=== PATIENT | male | born 1975 | race African-American/Black ===

== ENCOUNTER 2019-06-17 20:57 | Emergency (ER) | payer OTHER ==
[~2019-06-17] VITALS: Ht 177.8 cm; Wt 106.6 kg
[2019-06-17 21:43] VITALS: BP 145/95
--- NOTE | 2019-06-17 21:43 | ER.PDOC ---
General Chief Complaint: Requesting Medical Care Stated Complaint: MALE Time seen by MD: 21:43 Source: patient, family Exam Limitations: no limitations History of Present Illness Initial Comments 43 Y/O MALE STATES OCC AFTER HE HAS SEX THE RIGHT SIDE OF HIS PENIS SWELLS BY HIS GLANDS. NO POSS OF STD. NO PAIN NOW, NO PAINFUL URINATION, NO PENIS LESIONS OR DISCHARGE. STATES IT HAS HAPPENED BEFORE. NO PAIN NOW. NO TRAUMA. Timing/Duration: intermittent Severity/Quality: other Sexual History: Non-contributory Prior symptoms/Treatment: Similar symptoms previous Allergies: Coded Allergies: No Known Allergies (Unverified , 10/04/16) Home Meds No Active Prescriptions or Reported Meds Past Medical History Surgical History: no surgical history Social History Alcohol Use: none Drug Use: none Reviewed Nursing Reviewed: Vital Signs, Abn. Noted, Nursing Assessment Review of Systems Constitutional: no symptoms reported EENTM: no symptoms reported Respiratory: no symptoms reported Cardiovascular: no symptoms reported Gastrointestinal: no symptoms reported Genitourinary: pain, other Musculoskeletal: no symptoms reported Skin: no symptoms reported Psychiatric/Neurological: no symptoms reported Endocrine: no symptoms reported Hematologic/Lymphatic: no symptoms reported Physical Exam General Appearance: No Apparent Distress, WD/WN Abdomen: Normal Bowel Sounds, Non Tender, Soft, No Organomegaly, No Pulsatile Mass Back: nml inspection 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 Results/Orders Results/Orders Vital Signs Date Time Temp Pulse Resp B/P (MAP) Pulse Ox O2 Delivery O2 Flow Rate FiO2 06/17/19 21:43 98.5 78 16 06/17/19 21:43 98.5 78 16 99 06/17/19 21:43 98.5 78 16 145/95 (112) 99 Room Air Departure Time of Disposition: 21:49 Disposition: 01 HOME, SELF-CARE Impression: Primary Impression: Penis abrasion Condition: Stable Referrals: [facility] REPRESENTATIVE PERSONAL SERVICE (PCP) PRIMARY CARE PROVIDER MARCELL INFANTE MD Additional Instructions: TO ED NEEDED, FOLLOW UP WITH DR INFANTE FOR FURTHER EVAL. RX MOTRIN 800MG PRN Scripts No Active Prescriptions or Reported Meds Duration or Time Spent with Pa: 10 MIN ANITRA PRETTY DO Jun 17, 2019 21:43
== END 2019-06-17 22:10 | disposition home or self-care (01) ==
LOC: ER 20:57
DX: S30.812A Abrasion of penis, initial encounter (principal); X58.XXXA Exposure to other specified factors, initial encounter; Y93.89 Activity, other specified; Y92.89 Other specified places as the place of occurrence of the external cause; Y99.8 Other external cause status
CPT/HCPCS: 99281; 99282

== ENCOUNTER 2019-12-07 21:19 | Emergency (ER) | payer OTHER ==
[~2019-12-07] VITALS: Ht 175.3 cm; Wt 104.3 kg
[2019-12-07] MEDS ORDERED: NS 1000ML 1,000 ML IV STA (22:00)
--- NOTE | 2019-12-07 22:00 | ER.PDOC ---
General Chief Complaint: Requesting Medical Care Stated Complaint: DIARRHEA Time seen by MD: 21:52 Source: patient Exam Limitations: no limitations History of Present Illness Initial Comments Patient c/o persistent diarrhea, onset 11/29. He was seen by Taty and delmi'angel luis OLEARY which he has been taking. Today, he tried regular food which seemed to aggravate the diarrhea which was seeming to resolve. When maintaining a bland, mostly liquid diet, his stools were becoming formed. After eating beef broccoli today, he had 4 watery stools. He denies fever or abdominal pain. No report of blood in stool. Severity/Quality: moderate Associated Symptoms (diarrhea): watery Prior symptoms/Treatment: Recenly Seen, Treated by Doctor Allergies: Coded Allergies: No Known Allergies (Unverified , 10/04/16) Home Meds No Active Prescriptions or Reported Meds Vital Signs First Vital Signs Date Time Temp Pulse Resp B/P (MAP) Pulse Ox O2 Delivery O2 Flow Rate FiO2 12/07/19 22:21 98.5 74 18 99 12/07/19 22:21 119/75 (90) Room Air Last Vital Signs Date Time Temp Pulse Resp B/P (MAP) Pulse Ox O2 Delivery O2 Flow Rate FiO2 12/07/19 22:27 98.5 74 18 119/75 (90) 99 Room Air Past Medical History Medical History: hypertension Surgical History: no surgical history Family History Significant Family History: no pertinent family hx Social History Smoking: non-smoker Alcohol Use: none Drug Use: none Constitutional: no symptoms reported EENTM: no symptoms reported Respiratory: no symptoms reported Cardiovascular: no symptoms reported Gastrointestinal: diarrhea Genitourinary: no symptoms reported Musculoskeletal: no symptoms reported Skin: no symptoms reported Psychiatric/Neurological: no symptoms reported Physical Exam General Appearance: No Apparent Distress, Obese Respiratory: lungs clear, normal breath sounds, no respiratory distress, no accessory muscle use Cardiovascular: Regular Rate, Rhythm Gastrointestinal: Non Tender, Hypoactive bowel sounds, Soft Extremities: Non-Tender, Normal Inspection, No Pedal Edema Neurologic/Psychiatric: Alert, Normal Mood/Affect, Oriented x 3 Skin: Normal Color, Warm/Dry Results/Orders Results/Orders Orders - MALISSA DIAZ DO Cbc With Auto Diff (12/07/19 22:00) Comprehensive Metabolic Panel (12/07/19 22:00) Amylase (12/07/19 22:00) Lipase (12/07/19 22:00) Urinalysis (12/07/19 22:00) Clostridium Difficile Panel (12/07/19 22:00) Lactoferrin Fecal Qual(Ml) (12/07/19 22:00) Stool Culture(Ml) (12/07/19 22:00) Saline Lock (12/07/19 22:00) 0.9 % Sodium Chloride (Ns 1000ml) (12/07/19 22:00) Vital Signs Date Time Temp Pulse Resp B/P (MAP) Pulse Ox O2 Delivery O2 Flow Rate FiO2 12/07/19 22:27 98.5 74 18 119/75 (90) 99 Room Air 12/07/19 22:21 98.5 74 18 12/07/19 22:21 98.5 74 18 119/75 (90) 99 Room Air 12/07/19 22:21 98.5 74 18 99 Administered Medications Medications (Trade) Dose Ordered Sig/Dora Route PRN Reason Start Time Stop Time Status Last Admin Dose Admin Sodium Chloride 1,000 ml @ 1,200 mls/hr Q50M STAT IV 12/07/19 22:00 12/07/19 22:49 UNV 12/07/19 22:20 1,200 MLS/HR Laboratory Tests Test 12/07/19 22:12 12/07/19 22:30 White Blood Count 5.1 10^3/uL (4.5-11.0) Red Blood Count 5.06 10^6/uL (4.50-5.90) Hemoglobin 11.9 g/dL (13.9-16.3) L Hematocrit 36.7 % (37.0-53.0) L Mean Corpuscular Volume 72.5 fL (78-100) L Mean Corpuscular Hemoglobin 23.5 pg (26-34) L Mean Corpuscular Hemoglobin Concent 32.4 g/dL (33-36.5) L Red Cell Distribution Width 14.5 % (11.5-14.5) Platelet Count 285 10^3/uL (150-400) Mean Platelet Volume 8.7 fL (7.8-11.0) Neutrophils (%) (Auto) 61.2 % (41.0-85.0) Lymphocytes (%) (Auto) 28.1 % (24.0-44.0) Monocytes (%) (Auto) 7.7 % (5.0-12.0) Neutrophils # (Auto) 3.1 10^3/uL (1.8-7.7) Lymphocytes # (Auto) 1.43 10^3/uL1 (1.0-4.8) Monocytes # (Auto) 0.4 10^3/uL (0.3-0.8) Absolute Immature Granulocyte (auto 0.01 10^3 u/L (0-2) Absolute Eosinophils (auto) 0.1 10^3/uL (0.0-0.2) Immature Granulocytes % 0.20 % (0.00-0.50) Eosinophils % 2.4 % (0.0-5.0) Basophils % 0.4 % (0.0-0.2) H Basophils # 0.0 10^3/uL (0.0-0.1) Sodium Level 136 mmol/L (132-145) Potassium Level 3.3 mmol/L (3.6-5.2) L Chloride Level 102.0 mmol/L (96-109) Carbon Dioxide Level 26.6 mmol/L (20.0-32) Anion Gap 10.7 Blood Urea Nitrogen 12 mg/dL (7-18) Creatinine 1.20 mg/dL (0.59-1.40) Estimated GFR () 79.2 (>/=60) Est GFR (CKD-EPI)(Non-Afr Somali) 65.5 (>/=60) BUN/Creatinine Ratio 10.0 Glucose Level 107 mg/dL (70-110) Calcium Level 8.9 mg/dL (8.4-10.5) Total Bilirubin 0.4 mg/dL (0.2-1.0) Aspartate Amino Transferase (AST) 29 U/L (0-35) Alanine Aminotransferase (ALT) 58 U/L (12-78) Alkaline Phosphatase 67 U/L (50-136) Total Protein 7.6 g/dL (6.4-8.2) Albumin 3.8 g/dL (3.4-5.0) Globulin 3.8 Amylase Level 61 U/L (25-115) Lipase 132 U/L (114-286) Urine Collection Type CCMS Urine Color YELLOW (YELLOW) Urine Appearance CLEAR (CLEAR) Urine Bilirubin 1 MG/DL (NEGATIVE) H Urine Ketones 15 mg/dL (NEGATIVE) H Urine Specific [place] >=1.030 (1.005-1.035) Urine pH 5.5 (5.0-6.0) Urine Protein NEGATIVE (NEGATIVE) Urine Urobilinogen NORMAL (NEGATIVE) Urine Nitrate NEGATIVE (NEGATAIVE) Urine Leukocyte Esterase NEGATIVE (NEGATIVE) Urine Blood 10 TR (NEGATIVE) H Urine RBC 2-5 RBC/HPF (NONE SEEN) Urine WBC 0-2 WBC/HPF (0-2) Urine Bacteria RARE (NONE SEEN) Urine Glucose NORMAL (NEGATIVE) Urine Comment COMMENT: Progress Progress WBC WNL; chemistry normal except for slight drop in K 3.3 Departure Time of Disposition: 22:52 Disposition: 01 HOME, SELF-CARE Impression: Primary Impression: Diarrhea Condition: Stable Patient Instructions: Clear Liquid Diet, Diarrhea Referrals: TATY M[facility] EVENT SPECIALIST (PCP) PRIMARY CARE PROVIDER Additional Instructions: Maintain a strictly clear liquid diet for 24 hours (anything you can hold up to a light and see through)--no fruit juice, no caffeine. Gradually advance diet as tolerated after that--bland!! Incorporating bananas, white rice (without butter) and plain/dry toast after 24 hours should help diarrhea. Return to ER for any emergent concerns. Follow up with your doctor next week for reevaluation. Scripts No Active Prescriptions or Reported Meds Duration or Time Spent with Pa: 20 min Problem Qualifiers Primary Impression: Diarrhea Diarrhea type: unspecified type Qualified Codes: R19.7 - Diarrhea, unspecified MALISSA DIAZ DO Dec 07, 2019 21:59
[2019-12-07] MEDS ORDERED: NS 1000ML 1,000 ML ONE (22:14)
[2019-12-07 22:19] LABS: BASOPHIL % 0.4 % (0.0-0.2); EOSINOPHIL # 0.1 10^3/uL (0.0-0.2); EOSINOPHIL % 2.4 % (0.0-5.0); LYMPHOCYTES # 1.43 10^3/uL1 (1.0-4.8); LYMPHOCYTES % 28.1 % (24.0-44.0); MEAN CORP HGB 23.5 pg (26-34); MONOCYTES # 0.4 10^3/uL (0.3-0.8); MONOCYTES % 7.7 % (5.0-12.0); NEUTROPHIL # 3.1 10^3/uL (1.8-7.7); NEUTROPHILS % 61.2 % (41.0-85.0); PLATELET COUNT 285 10^3/uL (150-400); RED CELL DISTRIBUTION WIDTH 14.5 % (11.5-14.5)
[2019-12-07 22:21] VITALS: BP_SYST 112; BP_SYST 119; BP_DIAS 75; BP_DIAS 76
[2019-12-07 22:27] VITALS: BP 119/75
[2019-12-07 22:36] LABS: CALCIUM 8.9 mg/dL (8.4-10.5); CARBON DIOXIDE 26.6 mmol/L (20.0-32)
[2019-12-07 22:48] LABS: APPEARANCE,URINE CLEAR (CLEAR); BILIRUBIN,URINE 1 MG/DL (NEGATIVE); UA COLOR YELLOW (YELLOW)
[2019-12-07 22:49] LABS: UROBILINOGEN,URINE NORMAL (NEGATIVE)
--- NOTE | 2019-12-08 00:18 | NUR ---
IV DC'D TIP INTACT, NO BLEEDING
[2019-12-08 00:19] VITALS: BP 105/68
== END 2019-12-08 00:20 | disposition home or self-care (01) ==
LOC: ER 21:19
DX: R19.7 Diarrhea, unspecified (principal); I10 Essential (primary) hypertension
CPT/HCPCS: 36415; 80053; 81000; 82150; 83690; 85025; 96360; 96361; 99284; J7030

== ENCOUNTER 2021-04-23 18:56 | Emergency (ER) | payer OTHER ==
[~2021-04-23] VITALS: Ht 175.3 cm; Wt 103.4 kg
[2021-04-23 20:50] VITALS: BP 127/86
[2021-04-23 21:17] VITALS: BP 127/86
--- NOTE | 2021-04-23 21:49 | ER.PDOC ---
General Chief Complaint: Requesting Medical Care Stated Complaint: SWOLLEN UVULA Time seen by MD: 21:41 Source: patient Exam Limitations: no limitations History of Present Illness Initial Comments This is a 45-year-old man who comes to the emergency department complaining of a sore throat since this morning. He was taking his blood pressure medication thi s morning, and that is when he felt an odd feeling in his uvula. He has bleeding in the uvula. Severity: moderate Prior symptoms/Treatment: Similar symptoms previous Allergies: Coded Allergies: No Known Allergies (Unverified , 10/04/16) Home Meds No Active Prescriptions or Reported Meds Past Medical History Medical History: hypertension Surgical History: no surgical history Social History Alcohol Use: occassionally Drug Use: none Constitutional: denies no symptoms reported, denies see HPI, denies chills, denies diaphoresis, denies fever, denies malaise, denies weakness, denies other Eyes: denies no symptoms reported, denies see HPI, denies blindness, denies blurred vision, denies drainage, denies decreased acuity, denies foreign body sensation, denies inflammation, denies pain, denies photophobia, denies previous injury, denies shadows, denies tunnel vision, denies vision change, denies contact lenses, denies glasses, denies other Ears: denies no symptoms reported, denies see HPI, denies dizziness, denies pain, denies tinnitus, denies bloody discharge, denies clear discharge, denies purulent discharge, denies serosanguinous discharge, denies previous injury, denies other Nose: denies no symptoms reported, denies see HPI, denies clots, denies congestion, denies epistaxis, denies pain, denies bloody discharge, denies clear discharge, denies purulent discharge, denies serosanguinous discharge, denies previous injury, denies other Mouth: denies no symptoms reported, denies see HPI, denies clots, denies loose teeth, denies pain, denies swelling, denies bloody discharge, denies clear discharge, denies purulent discharge, denies serosanguinous discharge, denies previous injury, denies other Throat: denies no symptoms reported, denies see HPI, denies pain, denies swelling, denies discharge, denies neck stiffness, denies aphonia, denies hoarse, denies muffled, denies painful swallowing, denies difficulty with fluids, denies previous injury, denies other Respiratory: denies no symptoms reported, denies see HPI, denies cough, denies orthopnea, denies shortness of breath, denies stridor, denies wheezing, denies other Cardiovascular: denies no symptoms reported, denies see HPI, denies chest pain, denies edema, denies palpitations, denies syncope, denies other Gastrointestinal: denies no symptoms reported, denies see HPI, denies abdominal pain, denies constipation, denies diarrhea, denies nausea, denies vomiting, denies other Musculoskeletal: denies no symptoms reported, denies see HPI, denies back pain, denies gout, denies joint pain, denies joint swelling, denies muscle pain, denies muscle stiffness, denies neck pain, denies other Skin: denies no symptoms reported, denies see HPI, denies change in color, denies change in hair/nails, denies dryness, denies lesions, denies lumps, denies rash, denies other Neurological: denies no symptoms reported, denies see HPI, denies anxiety, denies depressed, denies emotional problems, denies headache, denies numbness, denies paresthesia, denies pre-existing deficit, denies seizure, denies tingling, denies tremors, denies weakness, denies other Hematologic/Lymphatic: denies no symptoms reported, denies see HPI, denies anemia, denies blood clots, denies easy bleeding, denies easy bruising, denies swollen glands, denies other Immunological/Allergic: denies no symptoms reported, denies see HPI, denies food allergy, denies grass allergy, denies mold allergy, denies pollen allergy, denies HIV/AIDS, denies transplant All Other Systems: Reviewed and Negative Physical Exam General Appearance: alert, no distress Head/Neck: head nml inspection, neck nml inspection, trachea midline, no lymphadenopathy, thyroid nml Eyes: eyes nml inspection, PERRL, no nystagmus Mouth: lips, gums nml, no drooling, no thrush, membranes nml Throat: pharynx nml (The uvula has a small hematoma on the outer portion of it, no other abnormalities.), voice nml, no airway problems Ears/Nose: nml inspection Respiratory: no resp. distress, lungs clear CVS: reg. rate & rhythm, heart sounds nml Abdomen: non-tender, no organomegaly Extremities: non-tender, ROM nml Skin Exam: Normal Color, Warm/Dry NEURO/PSYCH: oriented X3, mood/effect nml Results/Orders Results/Orders Orders - JAY JAY CORLEY MD Strep Screen (04/23/21 20:31) Vital Signs Date Time Temp Pulse Resp B/P (MAP) Pulse Ox O2 Delivery O2 Flow Rate FiO2 04/23/21 21:17 98.6 70 17 127/86 (100) 99 Room Air 04/23/21 21:17 98.6 70 17 04/23/21 20:50 98.6 70 17 99 Laboratory Tests Test 04/23/21 20:42 Group A Streptococcus Screen NEGATIVE (NEGATIVE) ER DEPART Departure Time of Disposition: 21:50 Disposition: 01 HOME / SELF CARE / HOMELESS Impression: Primary Impression: Uvular swelling Condition: Stable Patient Instructions: Hematoma Referrals: [facility] FIRE AND EXPLOSION INVESTIGATOR (PCP) PRIMARY CARE PROVIDER Additional Instructions: Gargle with salt water 3 times a day, the hematoma should go away in about a week and a half Scripts No Active Prescriptions or Reported Meds Duration or Time Spent with Pa: Unknown JAY JAY CORLEY MD Apr 23, 2021 21:49
== END 2021-04-23 22:05 | disposition home or self-care (01) ==
LOC: ER 18:56
DX: R22.0 Localized swelling, mass and lump, head (principal); I10 Essential (primary) hypertension
CPT/HCPCS: 87070; 87880; 99283